=== PATIENT | female | born 1950 | race Caucasian/White ===

== ENCOUNTER → 2019-03-23 | Outpatient (CLI) | payer MEDICARE ==
--- NOTE | 2019-03-23 07:54 | BD ---
EXAMINATION TYPE: Axial Bone Density DATE OF EXAM: 03/23/2019 COMPARISON: NONE CLINICAL HISTORY: Postmenopausal female. Height: 5 FT 7 IN Weight: 198 FRAX RISK QUESTIONS: Alcohol (3 or more units per day): NO Family History (Parent hip fracture): NO Glucocorticoids (More than 3mos): NO (Ex: prednisone, prednisolone, methylprednisolone, dexamethasone, and hydrocortisone). History of Fracture in Adulthood: NO Secondary Osteoporosis: 1. Type 1 Diabetes: NO 2. Hyperthyroidism: NO 3. Menopause before 45: YES 4. Malnutrition: NO 5. Chronic liver disease: NO Rheumatoid Arthritis: NO Current Tobacco Use: NO RISK FACTORS HISTORY OF: Active: YES Postmenopausal woman: APPROX 45-50 Lost more than 2 inches in height since high school: YES MEDICATIONS: Additional Medications: NONE Additional History: EXAM MEASUREMENTS: Bone mineral densitometry was performed using the [employer]. Bone mineral density as measured about the Lumbar spine is: ----- L1-L4(G/cm2): 1.462 T Score Values are as follows: ----- L2: 2.7 ----- L3: 3.9 ----- L4: 1.5 ----- L1-L4: 2.4 BASELINE Bone mineral density about the R hip (g/cm2): 1.051 Bone mineral density about the L hip (g/cm2): 1.056 T Score values are as follows: -----R Neck: 0.1 -----L Neck: 0.1 -----R Total: 1.5 -----L Total: 0.9 BASELINE IMPRESSION: Normal (Values between +1 and -1 indicate normal bone mass). Consider repeating this study in 5 year s or sooner if there is some new clinical indication. NOTE: T-SCORE=SD OF THE YOUNG ADULT MEAN.
--- NOTE | 2019-03-24 13:46 | MM ---
Reason for exam: screening (asymptomatic). History: Patient is postmenopausal. Physical Findings: A clinical breast exam by your physician is recommended on an annual basis and results should be correlated with mammographic findings. MG Screening Mammo w CAD Bilateral CC and MLO view(s) were taken. The breast tissue is heterogeneously dense. This may lower the sensitivity of mammography. No significant changes when compared with prior studies. ASSESSMENT: Benign, BI-RAD 2 RECOMMENDATION: Routine screening mammogram of both breasts in 1 year.
== END | disposition home or self-care (01) ==
LOC: RADMAMWWP 06:55
PROVIDERS: ATTEND Obstetrics & Gynecology
DX: Z12.31 Encounter for screening mammogram for malignant neoplasm of breast (principal); Z78.0 Asymptomatic menopausal state
CPT/HCPCS: 77067; 77080

== ENCOUNTER 2020-09-17 14:02 | Emergency (ER) | payer MEDICARE ==
[2020-09-17] MEDS ORDERED: hydrALAZINE HCL 20 MG/ML 1 ML VIAL IVP STA ×3 (14:48→16:43)
--- NOTE | 2020-09-17 14:52 | ED ---
General Adult HPI - General Chief complaint: Recheck/Abnormal Lab/Rx Stated complaint: elevated blood pressure Time Seen by Provider: 09/17/20 14:10 Source: patient, RN notes reviewed, old records reviewed Mode of arrival: ambulatory Limitations: no limitations - History of Present Illness Initial comments: This is a 69-year-old female presents emergency room stating that she took her blood pressure today and it was elevated. Patient denies any chest pain or shortness of breath. Patient states she has noted when she most She's been getting a little more fatigued getting a headache and that is something new for her. Patient states today she has no headache no blurred vision. 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 Currently patient is completely asymptomatic. Patient states she's had no previous history of high blood pressure and she denies any history of any thyroid issues. Patient denies any palpitations. Patient denies any recent fever chills or cough per patient denies any abdominal pain patient denies nausea vomiting diarrhea per patient denies any swelling to her legs or calf tenderness. - Related Data Home Medications Medication Instructions Recorded Confirmed Acetaminophen Tab [Tylenol] 500 mg PO DAILY PRN 09/17/20 09/17/20 Previous Rx's Medication Instructions Recorded amLODIPine [Norvasc] 5 mg PO DAILY #15 tab 09/17/20 Allergies Allergy/AdvReac Type Severity Reaction Status Date / Time aspirin Allergy Abdominal Verified 09/17/20 17:29 Pain Review of Systems ROS Statement: Those systems with pertinent positive or pertinent negative responses have been documented in the HPI. ROS Other: All systems not noted in ROS Statement are negative. Past Medical History Past Medical History: No Reported History History of Any Multi-Drug Resistant Organisms: None Reported Past Surgical History: No Surgical Hx Reported Past Psychological History: No Psychological Hx Reported Smoking Status: Never smoker Past Alcohol Use History: Occasional Past Drug Use History: None Reported General Exam - General Exam Comments Initial Comments: GENERAL: Patient is well-developed and well-nourished. Patient is nontoxic and well-hydr ated and is in no acute distress. ENT: Neck is soft and supple. No significant lymphadenopathy is noted. Oropharynx is clear. Moist mucous membranes. Neck has full range of motion without eliciting any pain. EYES: The sclera were anicteric and conjunctiva were pink and moist. Extraocular mo vements were intact and pupils were equal round and reactive to light. Eyelids were unremarkable. PULMONARY: Unlabored respirations. Good breath sounds bilaterally. No audible rales rhonchi or wheezing was noted. CARDIOVASCULAR: There is a regular rate and rhythm without any murmurs gallops or rubs. ABDOMEN: Soft and nontender with normal bowel sounds. SKIN: Skin is clear with no lesions or rashes and otherwise unremarkable. NEUROLOGIC: Patient is alert and oriented x3. Cranial nerves II through XII are grossly intact. Motor and sensory are also intact. Normal speech, volume and content. Symmetrical smile. MUSCULOSKELETAL: Normal extremities with adequate strength and full range of motion. No lower extremity swelling or edema. No calf tenderness. LYMPHATICS: No significant lymphadenopathy is noted PSYCHIATRIC: Normal psychiatric evaluation. Limitations: no limitations Course Vital Signs 09/17/20 09/17/20 09/17/20 14:09 14:23 16:00 Temperature 98.2 F Pulse Rate 105 H 103 H 101 H Respiratory 20 16 16 Rate Blood Pressure 184/100 194/106 170/99 O2 Sat by Pulse 98 97 98 Oximetry 09/17/20 09/17/20 09/17/20 16:11 16:30 17:18 Temperature Pulse Rate 92 102 H 106 H Respiratory 16 18 18 Rate Blood Pressure 170/99 161/80 128/70 O2 Sat by Pulse 97 96 99 Oximetry Medical Decision Making - Medical Decision Making EKG shows normal sinus rhythm at 80 bpm MO interval is 136 QRS is 76 QT interval 340 QTC is 421. Patient's EKG shows no ST segment elevation or depression. Chest x-ray shows no acute abnormality. Patient was given hydralazine emergency department 30 mg in total and her blood pressure came down nicely. Patient will be monitoring her blood pressure before every meal and before bed and follow-up with primary medical care doctor. - Lab Data Result diagrams: 09/17/20 15:04 09/17/20 15:04 Lab Results 09/17/20 09/17/20 Range/Units 15:04 15:04 WBC 5.8 (3.8-10.6) k/uL RBC 4.66 (3.80-5.40) m/uL Hgb 14.4 (11.4-16.0) gm/dL Hct 41.9 (34.0-46.0) % MCV 89.9 (80.0-100.0) fL MCH 30.8 (25.0-35.0) pg MCHC 34.3 (31.0-37.0) g/dL RDW 12.5 (11.5-15.5) % Plt Count 291 (150-450) k/uL MPV 6.5 Neutrophils % 58 % Lymphocytes % 24 % Monocytes % 8 % Eosinophils % 6 % Basophils % 2 % Neutrophils # 3.4 (1.3-7.7) k/uL Lymphocytes # 1.4 (1.0-4.8) k/uL Monocytes # 0.5 (0-1.0) k/uL Eosinophils # 0.4 (0-0.7) k/uL Basophils # 0.1 (0-0.2) k/uL Sodium 140 (137-145) mmol/L Potassium 3.9 (3.5-5.1) mmol/L Chloride 105 (98-107) mmol/L Carbon Dioxide 27 (22-30) mmol/L Anion Gap 8 mmol/L BUN 15 (7-17) mg/dL Creatinine 0.82 (0.52-1.04) mg/dL Est GFR (CKD-EPI)AfAm 84 (>60 ml/min/1.73 sqM) Est GFR (CKD-EPI)NonAf 73 (>60 ml/min/1.73 sqM) Glucose 99 (74-99) mg/dL Calcium 10.1 (8.4-10.2) mg/dL Magnesium 1.9 (1.6-2.3) mg/dL Total Bilirubin 0.2 (0.2-1.3) mg/dL AST 26 (14-36) U/L ALT 19 (4-34) U/L Alkaline Phosphatase 75 (38-126) U/L Total Protein 7.5 (6.3-8.2) g/dL Albumin 4.6 (3.5-5.0) g/dL TSH 1.990 (0.465-4.680) mIU/L Disposition Clinical Impression: Hypertension Disposition: HOME SELF-CARE Condition: Good Prescriptions: amLODIPine [Norvasc] 5 mg PO DAILY #15 tab Is patient prescribed a controlled substance at d/c from ED?: No Referrals: Manuel Roman MD [Primary Care Provider] - 1-2 days Time of Disposition: 17:32
[2020-09-17 15:24] LABS: Basophils # (A) 0.1 k/uL (0-0.2); Basophils % (A) 2 %; Eosinophils # (A) 0.4 k/uL (0-0.7); Eosinophils % (A) 6 %; HCT 41.9 % (34.0-46.0); HGB 14.4 gm/dL (11.4-16.0); Lymphocytes # (A) 1.4 k/uL (1.0-4.8); Lymphocytes % (A) 24 %; MCH 30.8 pg (25.0-35.0); MCHC 34.3 g/dL (31.0-37.0); MCV 89.9 fL (80.0-100.0); Mean Platelet Volume 6.5; Monocytes # (A) 0.5 k/uL (0-1.0); Monocytes % (A) 8 %; Neutrophils # (A) 3.4 k/uL (1.3-7.7); Neutrophils % (A) 58 %; Platelet Count 291 k/uL (150-450); RBC 4.66 m/uL (3.80-5.40); RDW 12.5 % (11.5-15.5); WBC 5.8 k/uL (3.8-10.6)
[2020-09-17 15:35] LABS: Albumin 4.6 g/dL (3.5-5.0); Calcium 10.1 mg/dL (8.4-10.2); Magnesium 1.9 mg/dL (1.6-2.3); Potassium 3.9 mmol/L (3.5-5.1); Total Bilirubin 0.2 mg/dL (0.2-1.3); Total Protein 7.5 g/dL (6.3-8.2)
--- NOTE | 2020-09-17 15:41 | XR ---
EXAMINATION TYPE: XR chest 2V DATE OF EXAM: 09/17/2020 COMPARISON: NONE HISTORY: Hypertension. TECHNIQUE: Frontal and lateral views of the chest are obtained. FINDINGS: There is no focal air space opacity, pleural effusion, or pneumothorax seen. The cardiac silhouette size is within normal limits. Slight underlying scoliotic curvature. Overlying EKG leads. IMPRESSION: No acute cardiopulmonary process.
[2020-09-17 17:19] VITALS: RESP 18
[2020-09-17 17:57] VITALS: BP 122/56; PULSE 92; TEMP 98
== END 2020-09-17 17:56 | disposition home or self-care (01) ==
LOC: EC 14:02
DX: I10 Essential (primary) hypertension (principal)
CPT/HCPCS: 99284; 96374; 96376 ×2; 36415; 93005; 80053; 84443; 83735; 85025; 71046; J0360

== ENCOUNTER 2021-01-23 16:10 | Inpatient (IN) | payer MEDICARE ==
[2021-01-23 16:49] LABS: Basophils # (A) 0.1 k/uL (0-0.2); Basophils % (A) 1 %; Eosinophils # (A) 0.4 k/uL (0-0.7); Eosinophils % (A) 5 %; HGB 14.4 gm/dL (11.4-16.0); Lymphocytes # (A) 1.9 k/uL (1.0-4.8); Lymphocytes % (A) 25 %; MCH 30.9 pg (25.0-35.0); MCHC 33.4 g/dL (31.0-37.0); MCV 92.3 fL (80.0-100.0); Mean Platelet Volume 6.9; Monocytes # (A) 0.6 k/uL (0-1.0); Monocytes % (A) 7 %; Neutrophils # (A) 4.6 k/uL (1.3-7.7); Neutrophils % (A) 59 %; Platelet Count 366 k/uL (150-450); RBC 4.65 m/uL (3.80-5.40); RDW 13.1 % (11.5-15.5); WBC 7.8 k/uL (3.8-10.6)
--- NOTE | 2021-01-23 16:55 | ED ---
General Adult HPI - General Chief complaint: Neuro Symptoms/Deficit Stated complaint: High BP/Rt Sided Numbness Time Seen by Provider: 01/23/21 16:29 Source: patient, RN notes reviewed, old records reviewed Mode of arrival: wheelchair Limitations: no limitations - History of Present Illness Initial comments: Patient is a 70-year-old female with past medical history for hypertension presents emergency Department complaining of strokelike symptoms. Last known well was at approximately 2 PM when she laid down for a nap. She will get 3:30 PM complaining of acute onset of right-sided face numbness as well as right upper extremity and right lower extremity numbness. She waited at home to see if it would improve and then came to the emergency department for evaluation and it did not. She states it is improved at this time, localized mostly to her lips as well as hand and foot. She denies any weakness. She denies any left- sided deficits or numbness. She is not on blood thinners. She is no history of TIAs or strokes. She is no other acute complaints at this time. She denies any fevers, chills, cough. She was vaccinated for COVID-19. Patient presents for strokelike symptoms.Patient states she had a headache also right after she woke up at that is since resolved.Patient states this is not the worst headache of her life. She currently is not experiencing headache. - Related Data Home Medications Medication Instructions Recorded Confirmed Latanoprost [Xalatan 0.005%] 1 drop BOTH EYES HS 01/23/21 01/23/21 Multivitamins, Thera [Multivitamin 1 tab PO DAILY 01/23/21 01/23/21 (formulary)] amLODIPine [Norvasc] 10 mg PO DAILY 01/23/21 01/23/21 lisinopriL [Zestril] 10 mg PO DAILY 01/23/21 01/23/21 Allergies Allergy/AdvReac Type Severity Reaction Status Date / Time aspirin Allergy Abdominal Verified 01/23/21 17:57 Pain Review of Systems ROS Statement: Those systems with pertinent positive or pertinent negative responses have been documented in the HPI. Review of Systems: CONST: Denies fever EYES: Denies blurry vision ENT: Denies nasal congestion C/V: Denies Chest pain RESP: Denies shortness of breath GI: Denies abdominal pain : Denies dysuria SKIN: Denies rash. MSK: Denies joint pain. NEURO: Endorses right-sided numbness ROS Other: All systems not noted in ROS Statement are negative. Past Medical History Past Medical History: No Reported History History of Any Multi-Drug Resistant Organisms: None Reported Past Surgical History: No Surgical Hx Reported Past Psychological History: No Psychological Hx Reported Smoking Status: Never smoker Past Alcohol Use History: Occasional Past Drug Use History: None Reported General Exam - General Exam Comments Initial Comments: General: Appears in no acute distress. HEAD: Normal with no signs of head trauma. EYES: PERRLA, EOMI, conjunctiva normal, no discharge. Pupils are 3 mm and equal bilaterally. ENT: Hearing grossly intact, normal oropharynx. RESPIRATORY: Clear breath sounds bilaterally. No wheezes, rales, or rhonchi. C/V: Regular rate and rhythm. S1 and S2 auscultated, no edema, peripheral pulses 2+ and intact throughout ABD: Abd is soft, nontender, nondistended EXT: Normal range of motion, no obvious deformity SKIN: No rashes or lesions observed on exposed skin. NEURO: Alert and oriented 4. Cranial nerves II through XII are intact. No focal strength deficits. GCS is 15. NIH is 1 for right facial, hand, foot loss of sensation to light touch. Limitations: no limitations Course Vital Signs 01/23/21 01/23/21 01/23/21 16:12 16:41 16:45 Temperature 98.0 F 98 F Pulse Rate 107 H 98 100 Respiratory 19 18 18 Rate Blood Pressure 169/75 161/81 147/80 O2 Sat by Pulse 97 98 97 Oximetry 01/23/21 01/23/21 01/23/21 17:00 17:15 17:30 Temperature 98 F 98.1 F 98 F Pulse Rate 100 90 92 Respiratory 18 18 16 Rate Blood Pressure 146/82 136/71 146/75 O2 Sat by Pulse 97 99 97 Oximetry 01/23/21 01/23/21 01/23/21 18:00 19:00 19:30 Temperature 97.9 F 98.1 F 98.2 F Pulse Rate 90 85 87 Respiratory 16 16 16 Rate Blood Pressure 145/78 138/68 145/78 O2 Sat by Pulse 99 99 99 Oximetry 01/23/21 01/23/21 19:43 20:30 Temperature 98.2 F 97.9 F Pulse Rate 75 80 Respiratory 16 16 Rate Blood Pressure 138/80 141/79 O2 Sat by Pulse 98 98 Oximetry Medical Decision Making - Medical Decision Making Based on the patient's presentation and physical exam, patient doesn't meet criteria for stroke pager activation due to acute onset of right-sided numbness. Last known well was 2 PM. Is currently 4:30 PM when I evaluated the patient. She is in the TPA window but I do not believe she is a TPA candidate as her symptoms have improved according to the patient and they are minor. Numbness is now dislocated periorally as well as in the hand and foot rather than the entire leg, arm, face. I discussed this with the patient and she was in agreement with the plan. EKG was obtained in addition to stroke workup. CT imaging will be obtained. Patient was in agreement this plan. Patient's EKG shows sinus tachycardia with PACs but no signs of acute ischemia.Laboratory studies are remarkable for a negative troponin. Covid is negative. The remainder of her labs are unremarkable. CT brain without contrast showed no acute intracranial abnormality. There is a calcific focus in the region of the left MCA. 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 There is also a finding that may represent artifact seen in the thoracic aorta they could be a plaque versus mass and repeat CT imaging of the chest is recommended. I discussed the findings with the patient. She reiterated that she has no history of having a worsening headache of her life earlier. She currently has no acute neurological complaints. NIH is nearly 0 at this time, as her sensa tion has nearly returned except over her right upper lip and lower lip and fingertips. She is improved at this time. As discussed above, she is not a TPA candidate. Initially, it was difficult contacting the neuro interventional is. He eventually was able to speak with Dr. Reynaga who agreed that the patient be admitted to the hospital with neurology consultation. He states that the patient only requires aspirin at this time and does not require any further anticoagulation. He would like the patient to follow up with him in his clinic on an outpatient basis to follow up on the brain aneurysm found in the left MCA segment. I was able to find a good phone number for the patient, [phone] Reynaga will set up an outpatient follow-up in his office. Goal blood pressure while the patient is here on an inpatient basis is 140/90. This is also the goal blood pressure for discharge home. I spoke with the inpatient neurology, Dr. obregon and he was in agreement with this plan. Patient be started on aspirin. MRI will be ordered. I spoke with the admitting team under Dr. Roman who was in agreement with this plan. I reiterated that he may need to repeat CT thorax imaging based on the prior findings and he was in agreement. Patient was therefore admitted to telemetry bed in serious but improving condition. - Lab Data Result diagrams: 01/23/21 16:31 01/23/21 16:31 Lab Results 01/23/21 01/23/21 01/23/21 Range/Units 16:31 16:31 16:31 WBC 7.8 (3.8-10.6) k/uL RBC 4.65 (3.80-5.40) m/uL Hgb 14.4 (11.4-16.0) gm/dL Hct 43.0 (34.0-46.0) % MCV 92.3 (80.0-100.0) fL MCH 30.9 (25.0-35.0) pg MCHC 33.4 (31.0-37.0) g/dL RDW 13.1 (11.5-15.5) % Plt Count 366 (150-450) k/uL MPV 6.9 Neutrophils % 59 % Lymphocytes % 25 % Monocytes % 7 % Eosinophils % 5 % Basophils % 1 % Neutrophils # 4.6 (1.3-7.7) k/uL Lymphocytes # 1.9 (1.0-4.8) k/uL Monocytes # 0.6 (0-1.0) k/uL Eosinophils # 0.4 (0-0.7) k/uL Basophils # 0.1 (0-0.2) k/uL PT 10.1 (9.0-12.0) sec INR 0.9 (<1.2) APTT 23.5 (22.0-30.0) sec Sodium 138 (137-145) mmol/L Potassium 3.9 (3.5-5.1) mmol/L Chloride 104 (98-107) mmol/L Carbon Dioxide 25 (22-30) mmol/L Anion Gap 9 mmol/L BUN 18 H (7-17) mg/dL Creatinine 0.77 (0.52-1.04) mg/dL Est GFR (CKD-EPI)AfAm 90 (>60 ml/min/1.73 sqM) Est GFR (CKD-EPI)NonAf 78 (>60 ml/min/1.73 sqM) Glucose 152 H (74-99) mg/dL Calcium 9.9 (8.4-10.2) mg/dL Total Bilirubin 0.2 (0.2-1.3) mg/dL AST 24 (14-36) U/L ALT 19 (4-34) U/L Alkaline Phosphatase 68 (38-126) U/L Troponin I (0.000-0.034) ng/mL Total Protein 7.7 (6.3-8.2) g/dL Albumin 4.5 (3.5-5.0) g/dL 01/23/21 Range/Units 16:31 WBC (3.8-10.6) k/uL RBC (3.80-5.40) m/uL Hgb (11.4-16.0) gm/dL Hct (34.0-46.0) % MCV (80.0-100.0) fL MCH (25.0-35.0) pg MCHC (31.0-37.0) g/dL RDW (11.5-15.5) % Plt Count (150-450) k/uL MPV Neutrophils % % Lymphocytes % % Monocytes % % Eosinophils % % Basophils % % Neutrophils # (1.3-7.7) k/uL Lymphocytes # (1.0-4.8) k/uL Monocytes # (0-1.0) k/uL Eosinophils # (0-0.7) k/uL Basophils # (0-0.2) k/uL PT (9.0-12.0) sec INR (<1.2) APTT (22.0-30.0) sec Sodium (137-145) mmol/L Potassium (3.5-5.1) mmol/L Chloride (98-107) mmol/L Carbon Dioxide (22-30) mmol/L Anion Gap mmol/L BUN (7-17) mg/dL Creatinine (0.52-1.04) mg/dL Est GFR (CKD-EPI)AfAm (>60 ml/min/1.73 sqM) Est GFR (CKD-EPI)NonAf (>60 ml/min/1.73 sqM) Glucose (74-99) mg/dL Calcium (8.4-10.2) mg/dL Total Bilirubin (0.2-1.3) mg/dL AST (14-36) U/L ALT (4-34) U/L Alkaline Phosphatase (38-126) U/L Troponin I <0.012 (0.000-0.034) ng/mL Total Protein (6.3-8.2) g/dL Albumin (3.5-5.0) g/dL - EKG Data -: EKG Interpreted by Me EKG Comments: 12-lead Electrocardiogram Interpretation Note EKG was reviewed and interpreted by myself. 12-lead ECG performed at 1626 is interpreted by me as revealing sinus tachycardia with PACs at a rate of 110 beats per minute. [place] is normal. [place] interval is 136 ms, QRS duration is 74 ms, QTc is 449 ms.. There were no ST or T wave abnormalities to suggest myocardial ischemia or injury. R wave progression across the precordium was satisfactory. By my interpretation this EKG is non-diagnostic for acute ischemia. This EKG is difficult to interpret secondary to artifact from issues with the EKG machine. Critical Care Time Critical Care Time: Yes Total Critical Care Time: 35 Critical Care Time: Upon my evaluation, this patient had a high probability of imminent or life- threatening deterioration due to CVA/TIA, which required my direct attention, intervention, and personal management. I have personally provided 35 minutes of critical care time exclusive of time spent on separately billable procedures. Time includes review of laboratory data, radiology results, discussion with consultants, and monitoring for potential decompensation. Interventions were performed as documented in my note. Disposition Clinical Impression: Cerebrovascular accident (CVA), TIA (transient ischemic attack), Brain aneurysm, Arm paresthesia, right, Right leg paresthesias, Right facial numbness Disposition: ADMITTED IP TO THIS HOSP Condition: Serious
[2021-01-23 16:57] LABS: INR 0.9 (<1.2); Partial Thromboplastin Time 23.5 sec (22.0-30.0); Prothrombin Time 10.1 sec (9.0-12.0)
[2021-01-23 16:58] LABS: Albumin 4.5 g/dL (3.5-5.0); Calcium 9.9 mg/dL (8.4-10.2); Potassium 3.9 mmol/L (3.5-5.1); Total Bilirubin 0.2 mg/dL (0.2-1.3); Total Protein 7.7 g/dL (6.3-8.2)
--- NOTE | 2021-01-23 17:05 | CT ---
EXAMINATION TYPE: CT brain wo con for TPA DATE OF EXAM: 01/23/2021 COMPARISON: None HISTORY: cva TECHNIQUE: CT scan of the head without contrast CT DLP: 1160.8 mGycm Automated exposure control for dose reduction was used. FINDINGS: No acute intracranial hemorrhage, midline shift or mass effect. Ho-white matter differentiation is preserved. Tiny calcific focus seen in the region of the left M1 of the left MCA. Atherosclerotic calcifications are seen in the intracranial internal carotid arteries. No acute orbital, osseous or soft tissue abnormalities seen. There is a focal soft tissue calcificati on in the scalp overlying the vertex. No mastoid air cell effusion or air-fluid levels in the paranasal sinuses. IMPRESSION: 1 NO ACUTE INTRACRANIAL HEMORRHAGE, MIDLINE SHIFT OR MASS EFFECT. 2. TINY CALCIFIC FOCUS IN THE REGION OF THE LEFT M1/MCA.
--- NOTE | 2021-01-23 17:49 | CT ---
EXAMINATION TYPE: CT angio head neck DATE OF EXAM: 01/23/2021 HISTORY: cva COMPARISON: None CT DLP: 545 mGycm. Automated Exposure Control for Dose Reduction was Utilized. TECHNIQUE: CTA scan of the neck is performed with IV Contrast, patient injected with 65cc mL of Isov ue 370, axial images are obtained, coronal and sagittal reformatted images are reviewed. 3D reconstru cted images are created on an independent workstation and reviewed. FINDINGS: Carotid/Vascular Structures: There is a soft tissue plaque at the superior medial aspect of the aorti c arch. Arch of the aorta has a 3 vessel configuration. The common carotid arteries are patent withou t significant stenosis or occlusion. The vertebral arteries originate from the subclavian arteries an d patent without significant stenosis or occlusion. The basilar artery is patent without significant stenosis or occlusion. External carotid arteries and internal carotid arteries in the neck are patent without significant stenosis or occlusion. The intracavernous segment of both internal carotid arter ies demonstrate minimal atherosclerotic calcifications. There are several arteries, middle cerebral a rteries and posterior cerebral arteries are patent without significant stenosis or occlusion. Both po sterior communicating arteries are visualized. There is a focal area of fusiform dilatation at the di stal aspect of the left MCA M2 segment measuring about 4.9 x 4.9 x 4.3 mm. The distal branches of the MCA symmetric in appearance and patent. The brain parenchyma and sylvian fissure are clear without e vidence for aneurysm rupture. Other: No evidence for acute intracranial hemorrhage, midline shift or mass effect. Deep venous struc tures of the brain are patent. Cervical lymphadenopathy. The parapharyngeal fat is maintained. The airways are patent. The upper cherise gs are clear. There is mild bronchiectatic changes in the right upper lobe. Degenerative changes are seen in the cervical and upper thoracic spine. No acute osseous abnormality. IMPRESSION: 1. Apparent fusiform dilatation of the distal left M2/MCA segment measuring up to 4.9 x 4.9 x 4.3 mm without evidence for rupture. 2. No acute occlusion or significant stenosis in the [place]. 3. Soft tissue filling defect in the arch of the aorta seen on the most inferior image of the CT is f avored to represent an atherosclerotic plaque though an adjacent soft tissue mass invading the aortic arch arising from the esophagus cannot be entirely excluded. Clinical correlation recommended. Nonur gent contrast enhanced CT of the chest should be considered to better characterize. NASCET criteria was used in interpretation of this exam?
[2021-01-23] MEDS ORDERED: ASPIRIN 81 MG PO STA (19:16)
[2021-01-23] MEDS: LATANOPROST 0.005% OPHTH DROPS 2.5 ML BTL BOTH EYES SCH (20:48)
--- NOTE | 2021-01-23 22:33 | US ---
EXAMINATION TYPE: US carotid duplex BILAT DATE OF EXAM: 01/23/2021 COMPARISON: CTa, MR CLINICAL HISTORY: Stenosis. Stenosis per order. Right-sided facial numbness. HTN. EXAM MEASUREMENTS: RIGHT: Peak Systolic Velocity (PSV) cm/sec ----- Right CCA: 64.2 ----- Right ICA: 79.8 ----- Right ECA: 80.9 ICA/CCA ratio: 1.2 RIGHT: End Diastole cm/sec ----- Right CCA: 16.2 ----- Right ICA: 27.0 ----- Right ECA: 10.6 LEFT: Peak Systolic Velocity (PSV) cm/sec ----- Left CCA: 75.2 ----- Left ICA: 102.7 ----- Left ECA: 100.4 ICA/CCA ratio: 1.4 LEFT: End Diastole cm/sec ----- Left CCA: 19.7 ----- Left ICA: 26.8 ----- Left ECA: 9.8 VERTEBRALS (direction of flow): Right Vertebral: Antegrade Left Vertebral: Antegrade Rhythm: Normal Intimal thickening seen bilateral carotid arteries. Possible minimal plaque within right ECA, color a rtifact seen. No elevated velocities at this time. -Hypoechoic area with hyperechoic center seen within left neck: 1.3 x 1.2 x 0.6 cm. IMPRESSION: There is antegrade flow in the vertebral arteries. Images and measurements suggest less than 20% sten osis in both internal carotid arteries. Criteria for Assigning % of Stenosis / Diameter reduction (Estimation based on the indirect measurements of the internal carotid artery velocities (ICA PSV). 1. Normal (no stenosis)=ICA PSV < 125 cm/s: ratio < 2.0: ICA EDV<40 cm/s. 2. Less than 50% stenosis=ICA PSV < 125 cm/s: ratio < 2.0: ICA EDV<40 cm/s. 3. 50 to 69% stenosis=ICA PSV of 125 to 230 cm/s: ration 2.0 ? 4.0: ICA EDV 40-100 cm/s. 4. Greater than 70% stenosis to near occlusion= ICA PSV > 230 cm/s: ratio > 4.0: ICA EDV > 100 cm/s. 5. Near occlusion= ICA PSV velocities may be low or undetectable: variable ratio and ICA EDV. 6. Total occlusion=unable to detect flow.
[2021-01-24 07:50] LABS: Glucose,Whole Blood 106 mg/dL (75-99)
--- NOTE | 2021-01-24 08:04 | P.HPIM ---
History of Present Illness H&P Date: 01/24/21 Chief Complaint: Lip numbness and finger tingling. The patient had sudden onset of right facial numbness and lip/perioral tingling. She also felt that her fingertips on the right hand were starting to become numb and tingly. The patient's feelings for this did not resolve. Family history includes grandparents with stroke at an older age. The patient then came in emergency room. No speech issues no visual problems no other sensory deficits. She was family properly voiding without difficulty. She states now after being evaluated that she's had continued finger tingling but no strength loss. There is also perioral on the right, tingling. No taste issues. The p atient is now admitted for TIA/CVA elements. No palliative maneuvers were found to occur. Review of Systems Constitutional: Reports as per HPI Eyes: denies blurred vision, denies pain Ears, nose, mouth and throat: Denies headache, Denies sore throat Cardiovascular: Denies chest pain, Denies shortness of breath Gastrointestinal: Denies abdominal pain, Denies diarrhea, Denies nausea, Denies vomiting Musculoskeletal: Reports arm numbness/tingling Integumentary: Denies pruritus, Denies rash Neurological: Reports as per HPI, Reports numbness, Reports tingling, Denies confusion, Denies headaches, Denies hearing difficulties, Denies lack of coordination, Denies loss of vision, Denies memory loss, Denies weakness Psychiatric: Denies anxiety, Denies depression Endocrine: Denies fatigue, Denies weight change Past Medical History Past Medical History: No Reported History 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 History of Any Multi-Drug Resistant Organisms: None Reported Past Surgical History: No Surgical Hx Reported Past Psychological History: No Psychological Hx Reported Smoking Status: Never smoker Past Alcohol Use History: Occasional Past Drug Use History: None Reported Medications and Allergies Home Medications Medication Instructions Recorded Confirmed Type Latanoprost [Xalatan 0.005%] 1 drop BOTH EYES HS 01/23/21 01/23/21 History Multivitamins, Thera [Multivitamin 1 tab PO DAILY 01/23/21 01/23/21 History (formulary)] amLODIPine [Norvasc] 10 mg PO DAILY 01/23/21 01/23/21 History lisinopriL [Zestril] 10 mg PO DAILY 01/23/21 01/23/21 History Allergies Allergy/AdvReac Type Severity Reaction Status Date / Time aspirin Allergy Abdominal Verified 01/23/21 17:57 Pain Physical Exam Vitals: Vital Signs Temp Pulse Pulse Resp BP BP Pulse Ox 01/24/21 02:00 83 16 01/23/21 23:54 98.1 F 83 16 162/80 98 01/23/21 20:30 97.9 F 80 16 141/79 98 01/23/21 19:43 98.2 F 75 16 138/80 98 01/23/21 19:30 98.2 F 87 16 145/78 99 01/23/21 19:00 98.1 F 85 16 138/68 99 01/23/21 18:00 97.9 F 90 16 145/78 99 01/23/21 17:30 98 F 92 16 146/75 97 01/23/21 17:15 98.1 F 90 18 136/71 99 01/23/21 17:00 98 F 100 18 146/82 97 01/23/21 16:45 98 F 100 18 147/80 97 01/23/21 16:41 98 18 161/81 98 01/23/21 16:12 98.0 F 107 H 19 169/75 97 Intake and Output 01/23/21 01/24/21 01/24/21 22:59 06:59 14:59 Other: Weight 86.183 kg 86.183 kg - Constitutional General appearance: no acute distress - EENT Eyes: EOMI - Neck Neck: no lymphadenopathy - Respiratory Respiratory: bilateral: CTA - Cardiovascular Rhythm: regular Heart sounds: normal: S1, S2 Abnormal Heart Sounds: no S3 Gallop - Gastrointestinal General gastrointestinal: soft, no tenderness - Integumentary Integumentary: no cellulitis - Neurologic Facial symmetry is noted. Upper extremity and lower summary strength is equal bilaterally Neurologic: CNII-XII intact Results CBC & Chem 7: 01/23/21 16:31 01/23/21 16:31 Labs: Abnormal Lab Results - Last 24 Hours (Table) 01/23/21 01/24/21 Range/Units 16:31 07:24 BUN 18 H (7-17) mg/dL Glucose 152 H (74-99) mg/dL POC Glucose (mg/dL) 106 H (75-99) mg/dL Assessment and Plan (1) Arm paresthesia, right Current Visit: Yes Status: Acute Code(s): R20.2 - PARESTHESIA OF SKIN SNOMED Code(s): 36903111083076847 (2) Cerebrovascular accident (CVA) Current Visit: Yes Status: Acute Code(s): I63.9 - CEREBRAL INFARCTION, UNSPECIFIED SNOMED Code(s): 826681135 (3) Right facial numbness Current Visit: Yes Status: Acute Code(s): R20.0 - ANESTHESIA OF SKIN SNOMED Code(s): 711954768 (4) TIA (transient ischemic attack) Current Visit: Yes Status: Acute Code(s): G45.9 - TRANSIENT CEREBRAL ISCHEMIC ATTACK, UNSPECIFIED SNOMED Code(s): 884777316 Plan: Await neurologic input. Reconcile home medications. Review CT results. The patient is otherwise full code. See orders otherwise
[2021-01-24] MEDS: lisinopriL 10 MG TAB PO SCH (09:15)
[2021-01-24] MEDS: MULTIVITAMINS, THERA 1 EACH TAB PO SCH (09:15)
[2021-01-24] MEDS: ASPIRIN 325 MG TAB PO SCH (09:15)
[2021-01-24] MEDS: amLODIPine 10 MG TAB PO SCH (09:15)
--- NOTE | 2021-01-24 11:52 | ECHOF ---
Referral Reason:Thrombus MEASUREMENTS -------- HEIGHT: 172.7 cm WEIGHT: 86.2 kg BP: IVSd: 0.9 cm (0.6 - 1.1) LVIDd: 5.3 cm (3.9 - 5.3) LVPWd: 1.1 cm (0.6 - 1.1) EDV(Teich): 135 ml IVSs: 2.0 cm LVIDs: 2.1 cm LVPWs: 1.7 cm %IVS Thck: 127 % ESV(Teich): 14 ml EF(Teich): 89 % %FS: 60 % SV(Teich): 120 ml RVIDd: 2.2 cm (< 3.3) IVC: 16.16 mm Ao Diam: 3.0 cm (2.0 - 3.7) LA Diam: 2.9 cm (2.7 - 3.8) AV Cusp: 1.9 cm (1.5 - 2.6) EPSS: 0.3 cm MV E Angel: 0.56 m/s MV DecT: 151 ms MV Dec [place]: 3.7 m/s MV A Angel: 0.80 m/s MV E/A Ratio: 0.70 MV PHT: 44 ms MR Vmax: 1.09 m/s MR maxP.79 mmHg AV Vmax: 1.33 m/s AV maxP.04 mmHg TR Vmax: 1.88 m/s TR maxP.13 mmHg RAP: 5.00 mmHg RVSP: 19.13 mmHg MV EF SLOPE: 75.23 mm/s (70 - 150) MV EXCURSION: 12.49 mm (> 18.000) FINDINGS -------- This was a technically adequate study. The left ventricular size is normal. Left ventricular wall thickness is normal. Overall left vent ricular systolic function is normal with, an EF between 55 - 60 %. The right ventricle is normal in size. The left atrial size is normal. The right atrial size is normal. Unable to visualize the septum. The aortic valve is trileaflet and appears structurally normal. The mitral valve is normal. There is trace mitral regurgitation. The tricuspid valve appears structurally normal. Trace tricuspid regurgitation present. Right lilo tricular systolic pressure is normal at < 35 mmHg. There is no pulmonic regurgitation present. The aortic root size is normal. Normal inferior vena cava with normal inspiratory collapse consistent with estimated right atrial pre ssure of 5 mmHg. There is no pericardial effusion. CONCLUSIONS -------- 1. The left ventricular size is normal. 2. Left ventricular wall thickness is normal. 3. Overall left ventricular systolic function is normal with, an EF between 55 - 60 %. 4. Unable to visualize the septum. 5. There is trace mitral regurgitation. 6. Trace tricuspid regurgitation present. 7. There is no pericardial effusion. [employer] MACHINE OPERATOR: Soraida Barnes RDCS
--- NOTE | 2021-01-24 13:54 | P.CNNES ---
History of Present Illness Consult date: 01/24/21 Requesting physician: Gray Low Reason for Consult: CVA/TIA History of Present Illness: Patient is a 70-year-old left-handed female with history of hypertension came to the hospital yesterday at 4:10 PM for acute onset of numbness of the right side. Patient states that she took an hour of afternoon nap, woke up at 3:15 PM yesterday, when she noticed numbness of the right side of her mouth and right hand. There was no numbness of the leg, any slurred speech, facial droop, double vision, headache or problem with the vision. Patient denies any problem with the balance. Patient checked her systolic blood pressure was 180, therefore got concerned and decided to come to the ER. Vital signs on arrival blood pressure 169/75, pulse rate 107, temperature 98.0. CT head showed no acute intracranial hemorrhage, midline shift or mass effect. Tiny calcific focus in the region of the left M1/MCA. EKG shows sinus tachycardia with premature atrial complexes. CTA of head and neck showed apparent fusiform dilation of the distal left M2/MCA segment measuring up to 4.9 x 4.9 x 4.3 mm without evidence for rupture. No acute occlusion or significant stenosis of the [place]. Soft tissue filling defect in the arch of aorta seen on the most inferior a major of the CT is favored to represent an atherosclerotic plaque though an adjacent soft tissue mass invading the aortic arch arising from the esophagus cannot be entirely excluded. Clinical correlation recommended. Nonurgent contrast enhanced CT of the chest should be considered to better characterize. ED staff Dr. Low spoke to Dr. Reynaga about the CTA results, who recommended patient to be started on aspirin, and follow-up in his office for further evaluation of the left MCA aneurysm. Carotid Doppler revealed antegrade flow in the vertebral arteries. Less than 20% stenosis in the both ICA. Patient has history of hypertension for last 1 year, denies diabetes, no tobacco or alcohol use. Patient does not take any antiplatelet medication at home. Aspirin produces upset stomach. At present all symptoms have resolved, only with some residual tingling of the tips of the fingers of right hand. Review of Systems Completely unremarkable except as mentioned above in detail. No chest pain shortness of breath wheezing or cough. No urinary issues. Past Medical History Past Medical History: No Reported History Additional Past Medical History / Comment(s): belena History of Any Multi-Drug Resistant Organisms: None Reported Past Surgical History: No Surgical Hx Reported Past Psychological History: No Psychological Hx Reported Smoking Status: Never smoker Past Alcohol Use History: Occasional Past Drug Use History: None Reported Medications and Allergies Home Medications Medication Instructions Recorded Confirmed Type Latanoprost [Xalatan 0.005%] 1 drop BOTH EYES HS 01/23/21 01/23/21 History Multivitamins, Thera [Multivitamin 1 tab PO DAILY 01/23/21 01/23/21 History (formulary)] amLODIPine [Norvasc] 10 mg PO DAILY 01/23/21 01/23/21 History lisinopriL [Zestril] 10 mg PO DAILY 01/23/21 01/23/21 History Allergies Allergy/AdvReac Type Severity Reaction Status Date / Time aspirin Allergy Abdominal Verified 01/23/21 17:57 Pain Physical Examination - Vital Signs Vital Signs: Vital Signs Temp Pulse Pulse Resp BP BP Pulse Ox 01/24/21 08:43 97.6 F 91 16 131/71 96 01/24/21 02:00 83 16 01/23/21 23:54 98.1 F 83 16 162/80 98 01/23/21 20:30 97.9 F 80 16 141/79 98 01/23/21 19:43 98.2 F 75 16 138/80 98 01/23/21 19:30 98.2 F 87 16 145/78 99 01/23/21 19:00 98.1 F 85 16 138/68 99 01/23/21 18:00 97.9 F 90 16 145/78 99 01/23/21 17:30 98 F 92 16 146/75 97 01/23/21 17:15 98.1 F 90 18 136/71 99 01/23/21 17:00 98 F 100 18 146/82 97 01/23/21 16:45 98 F 100 18 147/80 97 01/23/21 16:41 98 18 161/81 98 01/23/21 16:12 98.0 F 107 H 19 169/75 97 Intake and Output 01/23/21 01/24/21 01/24/21 22:59 06:59 14:59 Other: Weight 86.183 kg 86.183 kg Patient is an elderly female, very pleasant in no acute distress. Patient is alert awake oriented to time place and person. Speech and language functions are normal. Attention, concentration and fund of knowledge is adequate. No aphasia or dysarthria. Patient can name and repeat very well. On cranial examination, pupils are equal, round and reacting to light, visual champagne are full on confrontation with no neglect on double simultaneous stimulation, extraocular muscles are intact with no nystagmus. Face is symmetric, tongue protrudes to the midline. Palatal elevation and sensation normal, hearing and shoulder shrug normal, facial sensation normal. Shoulder shrug normal. On muscle strength testing, there is no pronator drift and the strength is normal in arms and legs distally and proximally. Deep tendon reflexes are 1+ to 2+ symmetric and plantars downgoing. Sensory to touch is equal with no neglect. Cerebellar function showed ataxia for [id number] testing only on the right, but not on the left. No ataxia for ilqa-tm-[id number] testing on either sides. No dysdiadochokinesia. Tone and bulk of muscles normal. Gait normal. On general examination, there is no carotid bruit or murmur, S1-S2 audible. Abdomen is soft nontender. Chest is clear. Peripheral pulses are present. No edema. Results - Laboratory Findings CBC and BMP: 01/23/21 16:31 01/23/21 16:31 Abnormal Lab Findings: Abnormal Labs 01/23/21 01/24/21 16:31 07:24 BUN 18 H Glucose 152 H POC Glucose (mg/dL) 106 H Assessment and Plan Assessment: * Probable acute ischemic stroke manifesting with numbness of the right facial region and the right hand. Patient has residual numbness of the fingertips of right hand. Examination reveals evidence of ataxia in the right upper extremity. * CTA revealed fusiform dilation of the distal left M2/MCA segment measuring up to 4.9 x 4.9 x 4.3 mm. * Hypertension Plan: * MRI of the brain to evaluate for acute stroke * Fasting lipid panel, hemoglobin A1c * 2-D echo revealed normal left ventricular size. Left ventricle wall thickness is normal. EF is between 55-60%. Unable to visualize the septum. Trace MR. * Patient to follow-up with Dr. Reynaga, neuro intervention for evaluation of left MCA aneurysm. * CTA of the neck showed no stenosis. * Start aspirin 325 mg daily. * Telemetry monitoring so far showing sinus rhythm, with sinus tachycardia in 130s with activity. No other arrhythmia. * DVT prophylaxis * Continue neuro checks.
[2021-01-24 14:50] LABS: Chol/HDL Ratio 3.83 Ratio; HDL Cholesterol 54.9 mg/dL (40.00-60.00); LDL Cholesterol,Calculated 126.3 mg/dL (0.0-131.0); VLDL Calculation 28.8 mg/dL (5.00-40.00)
--- NOTE | 2021-01-24 17:22 | MR ---
MR brain without contrast HISTORY: Neuro deficit, acute stroke suspected, numbness right-sided face and mouth, right arm Multiplanar multisequence imaging obtained through the brain Correlation to CT brain 01/23/2021 Restricted diffusion is noted within the thalamus on the left, corresponding hyperintensity on invers ion recovery T2-weighted sequences. The corpus callosum, cervical medullary junction, cerebellopontin e angles are within normal limits. Scattered and confluent hyperintensities present in the pericallos al, periventricular, subcortical white matter on inversion recovery T2-weighted sequences, approximat reyna 20-30 lesions are present. Cortical atrophy is likely age-related. There is a convex border to th e pituitary gland, small macroadenoma is not excluded. The orbits show symmetric appearance. Mucosal disease present within the maxillary sinus on the right, ethmoid air cells. Orbits show symmetric jung earance. Small focus of hyperintensity associated with the right parotid gland on T2 and inversion re covery sequences may represent lymph node and measures only approximately 9 mm. IMPRESSION: Findings consistent with subacute infarct in the left thalamus. Age-related changes of at rophy and chronic small vessel ischemia. Sinus disease and additional findings above.
[2021-01-24] MEDS: LATANOPROST 0.005% OPHTH DROPS 2.5 ML BTL BOTH EYES SCH (20:53)
[2021-01-25 05:54] LABS: Glucose,Whole Blood 99 mg/dL (75-99)
--- NOTE | 2021-01-25 08:29 | P.DS ---
Providers Date of admission: 01/23/21 19:40 Attending physician: Manuel Roman Consults: 01/23/21 19:41 Consult Physician Routine Consulting Provider: Alice Snow Consult Reason/Comments: CVA/TIA Do you want consulting provider notified?: Yes Primary care physician: Manuel Roman - Discharge Diagnosis(es) (1) Arm paresthesia, right Current Visit: Yes Status: Acute (2) Cerebrovascular accident (CVA) Current Visit: Yes Status: Acute (3) Right facial numbness Current Visit: Yes Status: Acute (4) TIA (transient ischemic attack) Current Visit: Yes Status: Acute Hospital Course: The patient was admitted for Oral numbness and hand tingling. The patient was found to have MRI with thalamic stroke. The patient was placed on appropriate neurologic protocols. Neurology was consulted. Once cleared, the patient will be discharged she is ambulating memory cognitively is fine. She still continues of slight tingling but no speech issues. No swallowing problems no fever or chills. She will placed on aspirin as prevention. She also has small piece for aneurysm which needs to be followed up and ambiguous CT finding which needs follow-up. She'll be discharged in stable condition once cleared by neurology. Patient Condition at Discharge: Serious Plan - Discharge Summary New Discharge Prescriptions: New Aspirin 325 mg PO DAILY tab Atorvastatin Calcium [Lipitor] 40 mg PO DAILY #30 tablet Continue lisinopriL [Zestril] 10 mg PO DAILY Latanoprost [Xalatan 0.005%] 1 drop BOTH EYES HS amLODIPine [Norvasc] 10 mg PO DAILY Multivitamins, Thera [Multivitamin (formulary)] 1 tab PO DAILY Discharge Medication List Latanoprost [Xalatan 0.005%] 1 drop BOTH EYES HS 01/23/21 [History] Multivitamins, Thera [Multivitamin (formulary)] 1 tab PO DAILY 01/23/21 [History] amLODIPine [Norvasc] 10 mg PO DAILY 01/23/21 [History] lisinopriL [Zestril] 10 mg PO DAILY 01/23/21 [History] Aspirin 325 mg PO DAILY tab 01/25/21 [Rx] Atorvastatin Calcium [Lipitor] 40 mg PO DAILY #30 tablet 01/25/21 [Rx] Follow up Appointment(s)/Referral(s): Manuel Roman MD [Primary Care Provider] - 1-2 days Discharge Disposition: HOME SELF-CARE
[2021-01-25] MEDS: MULTIVITAMINS, THERA 1 EACH TAB PO SCH (09:11)
[2021-01-25] MEDS: lisinopriL 10 MG TAB PO SCH (09:11)
[2021-01-25] MEDS: ASPIRIN 325 MG TAB PO SCH (09:11)
[2021-01-25] MEDS: amLODIPine 10 MG TAB PO SCH (09:11)
[2021-01-25 09:58] VITALS: RESP 18; TEMP 98.4
[2021-01-25 11:59] LABS: Glucose,Whole Blood 89 mg/dL (75-99)
[2021-01-25 12:57] VITALS: BP 154/74; PULSE 92
--- NOTE | 2021-01-26 10:20 | P.PN ---
Subjective Progress Note Date: 01/25/21 Patient was seen for a follow-up. Patient states her symptoms have mostly resolved. Only very minimal residual tingling of the fingertips of right middle finger. Denies any focal symptoms. No headache. Objective - Vital Signs Vital signs: Vital Signs Temp 98.4 F 01/25/21 08:00 Pulse 74 01/25/21 08:00 Resp 18 01/25/21 08:00 BP 153/77 01/25/21 08:00 Pulse Ox 94 L 01/25/21 08:00 Intake & Output 01/24/21 01/25/21 01/25/21 18:59 06:59 18:59 Intake Total 660 Balance 660 Weight 85.7 kg Intake: Oral 660 Other: # Voids 2 1 - Exam Patient's mental status, speech and language functions are normal. No aphasia or dysarthria. Cranial nerve examination are all normal. Visual champagne are full, with no neglect. Her pupils are equal, round and reacting. Face is symmetric. Extraocular muscles are intact. Tongue protrudes to the midline. Hearing normal. On muscle strength testing there is no drift and the strength is normal in arms and legs distally and proximally. Sensations are equal on either side with no neglect on double simultaneous stimulation. Patient has very mild ataxia for [id number] on the right, but no ataxia for aaks-vn-bohw testing. Gait is normal. - Labs CBC & Chem 7: 01/23/21 16:31 01/23/21 16:31 Labs: Abnormal Lab Results - Last 24 Hours (Table) 01/23/21 01/23/21 Range/Units 11:00 16:31 Hemoglobin A1c 6.2 H (4.0-6.0) % Cholesterol 210.00 H (0.00-200.00) mg/dL Assessment and Plan Assessment: * Acute ischemic stroke in the left thalamus, manifesting with numbness of the r ight facial region and the right hand. Patient has residual numbness of the fingertips of right hand. Examination reveals evidence of ataxia in the right upper extremity. * CTA revealed fusiform dilation of the distal left M2/MCA segment measuring up to 4.9 x 4.9 x 4.3 mm. * Hypertension * Hyperlipidemia Plan: * MRI of the brain confirmed subacute infarct in the left thalamus. Age-related changes of atrophy and chronic small vessel ischemia. I reviewed her MRI films on the computer with the patient. * Fasting lipid panel with cholesterol 210, LDL 126, HDL 54 and triglycerides 144. Patient will be discharged on Lipitor 40 mg daily. * Hemoglobin A1c 6.2 suggestive of prediabetes. Patient may have to watch her diet and need to repeat A1c in 6 months. * 2-D echo revealed normal left ventricular size. Left ventricle wall thickness is normal. EF is between 55-60%. Unable to visualize the septum. Trace MR. * Patient to follow-up with Dr. Reynaga, neuro intervention for evaluation of left MCA aneurysm. Office telephone number provided. * CTA of the neck showed no stenosis. * Start aspirin 325 mg daily. We will avoid dual antiplatelet because of aneurysm. After 3 months, may decrease aspirin to 81 mg daily. * Telemetry monitoring so far showing sinus rhythm, with sinus tachycardia in 100s, some PVC and PAC. No other arrhythmia. * DVT prophylaxis * Neurologically clear for discharge.
== END 2021-01-25 14:03 | disposition home or self-care (01) | DRG 66 ==
LOC: EC 16:10 → 3SCARD 19:40
PROVIDERS: ADMIT Family Medicine; ATTEND Family Medicine
DX: I63.9 Cerebral infarction, unspecified (principal); E78.5 Hyperlipidemia, unspecified; I10 Essential (primary) hypertension; I49.1 Atrial premature depolarization; Z20.822 Contact with and (suspected) exposure to COVID-19; Z79.899 Other long term (current) drug therapy; Z82.3 Family history of stroke; R00.0 Tachycardia, unspecified; R27.0 Ataxia, unspecified; I67.1 Cerebral aneurysm, nonruptured
CPT/HCPCS: 36415; 70450; 70496; 70498; 70551; 80053; 80061; 83036; 84484; 85025; 85610; 85730; 87635; 93005; 93306; 93880; 99291

== ENCOUNTER → 2021-02-26 | Outpatient (CLI) | payer MEDICARE ==
--- NOTE | 2021-02-26 08:34 | CT ---
EXAMINATION TYPE: CT chest wo con DATE OF EXAM: 02/26/2021 COMPARISON: NONE HISTORY: Abnormal testing of lung CT DLP: 358.0 mGycm. Automated Exposure Control for Dose Reduction was Utilized. TECHNIQUE: CT scan of the thorax is performed without IV contrast. FINDINGS: LUNGS: The lungs are grossly clear, there is no concerning parenchymal mass or nodule identified. Th ere is no pleural effusion or pneumothorax seen. The tracheobronchial tree is patent. No bronchiecta sis identified with particular attention to the right upper lobe. MEDIASTINUM: Lack of IV contrast is noted to limit evaluation for mediastinal and especially hilar ad enopathy. There are no definitive greater than 1 cm hilar or mediastinal lymph nodes. No cardiomega ly or pericardial effusion is seen. Main pulmonary artery borderline at 2.9 cm axial image 23. Adjace nt ascending aorta measures up to 3.3 cm in diameter. OTHER: Slight underlying scoliotic curvature with mild to moderate multilevel spurring. IMPRESSION: Lungs are clear. No scarring or bronchiectasis identified.
== END | disposition home or self-care (01) ==
LOC: RADCTMAIN 07:29
PROVIDERS: ATTEND Family Medicine
DX: R91.8 Other nonspecific abnormal finding of lung field (principal)
CPT/HCPCS: 71250

== ENCOUNTER → 2024-01-06 | Outpatient (CLI) | payer MEDICARE ==
--- NOTE | 2024-01-07 14:00 | MM ---
Reason for Exam: Screening (asymptomatic). Last mammogram was performed 1 year(s) and 1 month(s) ago. Patient History: Menarche at age 12. First Full-Term at age 25. Postmenopausal. Risk Values: Slime 5 year model risk: 2.0%. NCI Lifetime model risk: 4.5%. Prior Study Comparison: 03/23/2019 Bilateral Screening Mammogram, [facility]. 12/30/2022 Bilateral MG screening mammo w CAD, [facility]. Tissue Density: The breasts are heterogeneously dense, which may obscure small masses. Findings: Analyzed By CAD. Right breast: There is no suspicious group of microcalcifications or new suspicious mass. Left breast: There is no suspicious group of microcalcifications or new suspicious mass. Overall Assessment: Negative, BI-RAD 1 Management: Screening Mammogram of both breasts in [address] [facility] will attempt to contact patient to return for supplemental views and ultrasound if indicated. Patient should continue monthly self-breast exams. A clinical breast exam by your physician is recommended on an annual basis. This exam should not preclude additional follow-up of suspicious palpable abnormalities. Note on Slime scores and lifetime risk: 1. A Slime score greater than 3% is considered moderate risk. If this is the case, consider specialist referral to assess eligibility for a risk reducing agent. 2. If overall lifetime risk for the development of breast cancer is 20% or higher, the patient may qualify for future screening with alternating mammogram and breast MRI. [facility], , 01/07/2024 1:57 PM. Electronically signed and approved by: Segnu Sorenson DO
== END | disposition home or self-care (01) ==
LOC: RADMAMWWP 14:26
PROVIDERS: ATTEND Family Medicine
CPT/HCPCS: 77063; 77067